=== PATIENT | female | born 1995 | race Caucasian/White ===

== ENCOUNTER → 2020-11-13 | Outpatient (REF) | payer BC | LOC: M SFHCWAGY 13:34 | PROVIDERS: ATTEND Nurse Practitioner Women's Health | DX: Z12.4 Encounter for screening for malignant neoplasm of cervix (principal); Z01.419 Encounter for gynecological examination (general) (routine) without abnormal findings ==

== ENCOUNTER → 2022-01-29 | Outpatient (CLI) | payer BC | LOC: M WHC 13:31 | PROVIDERS: ATTEND Obstetrics & Gynecology | DX: N63.20 Unspecified lump in the left breast, unspecified quadrant (principal) ==

== ENCOUNTER → 2022-06-04 | Outpatient (REF) | payer BC | LOC: M PLALAB 16:17 | PROVIDERS: ATTEND Nurse Practitioner Family | DX: Z12.4 Encounter for screening for malignant neoplasm of cervix (principal) ==

== ENCOUNTER → 2023-05-27 | Outpatient (CLI) | payer BC | LOC: M RAD 07:53 | PROVIDERS: ATTEND Nurse Practitioner Adult Health | DX: N97.9 Female infertility, unspecified (principal) ==

== ENCOUNTER → 2023-05-27 | Outpatient (CLI) | payer BC ==
[2023-05-27 10:04] LABS: FREE T4 1.05 NG/DL (0.89-1.76)
[2023-05-27 10:05] LABS: FOLLICLE STIMULATING HORMONE 6.9 mIU/ML; LUTEINIZING HORMONE 11.8 mIU/ML; THYROID STIMULATING HORMONE 2.05 uIU/ML (0.55-4.78)
== END ==
LOC: M LAB 09:01
PROVIDERS: ATTEND Nurse Practitioner Adult Health
DX: N97.9 Female infertility, unspecified (principal)

== ENCOUNTER → 2023-08-02 | Outpatient (CLI) | payer BC | LOC: M WHC 12:51 | PROVIDERS: ATTEND Nurse Practitioner Family | DX: N83.202 Unspecified ovarian cyst, left side (principal) ==

== ENCOUNTER 2024-05-08 05:30 | Emergency (ER) | payer BC, OTHER ==
[~2024-05-08] VITALS: Ht 160 cm; Wt 90.2 kg
[2024-05-08 08:15] LABS: BASO # 0.1 10^3/uL (0.0-0.2); BASO % 0.4 % (0.0-1.0); EOS % 0.1 % (0.0-3.0); HEMOGLOBIN 13.4 g/dl (12.0-15.5); LYMPH # 1.4 10^3/uL (1.5-5.0); MEAN CORPUSCULAR HEMOGLOBIN 31.2 pg (27.0-33.0); MEAN CORPUSCULAR HGB CONC 33.5 g/dl (32.0-36.5); MONO # 0.7 10^3/uL (0.0-0.8); MONO % 3.4 % (2.0-8.0); NEUTROPHILS # 17.1 10^3/uL (1.5-8.5); NEUTROPHILS % 88.7 % (36.0-66.0); PLATELET COUNT, AUTOMATED 410 10^3/uL (150-450); WHITE BLOOD COUNT 19.3 10^3/uL (4.0-10.0)
[2024-05-08 08:33] LABS: LIPASE 38 U/L (12-53)
[2024-05-08 08:36] LABS: ALBUMIN 3.8 G/DL (3.2-5.2); ALKALINE PHOSPHATASE 89 U/L (46-116); ALT/SGPT 32 U/L (7.0-40); AST/SGOT 12 U/L (<34); BILIRUBIN,DIRECT < 0.1 MG/DL (<0.4); BILIRUBIN,TOTAL 0.3 MG/DL (0.3-1.2); BLOOD UREA NITROGEN 11 MG/DL (9-23); CALCIUM LEVEL 9.4 MG/DL (8.5-10.1); CARBON DIOXIDE LEVEL 24 MMOL/L (20-31); CHLORIDE LEVEL 108 MMOL/L (98-107); CREATININE FOR GFR 0.54 MG/DL (0.55-1.30); GLOMERULAR FILTRATION RATE > 60.0 (>60); GLUCOSE, FASTING 96 MG/DL (60-100); POTASSIUM SERUM 4.2 MMOL/L (3.5-5.1); SODIUM LEVEL 141 MMOL/L (136-145); TOTAL PROTEIN 7.4 G/DL (5.7-8.2)
[2024-05-08 08:41] LABS: HCG, SERUM QUALITATIVE NEGATIVE (NEGATIVE)
[2024-05-08] MEDS ORDERED: ISOVUE-370 76% 100ML VIAL As Ordered ONE (08:53)
[2024-05-08 10:05] VITALS: BP 121/83; TEMP 98.1; O2SAT 99
[2024-05-08] MEDS ORDERED: HYDR-3713 PO (10:06)
== END 2024-05-08 10:56 | disposition home or self-care (01) ==
LOC: M ED 05:30
DX: N83.292 Other ovarian cyst, left side (principal); Z88.1 Allergy status to other antibiotic agents; Z79.1 Long term (current) use of non-steroidal anti-inflammatories (NSAID)
CPT/HCPCS: 36415; 74177; 76830; 76856; 80048; 80076; 81001; 83690; 84703; 85025; 93041; 93976; 99284; Q9967

== ENCOUNTER 2024-06-15 12:54 | Day surgery (SDC) | payer OTHER ==
[~2024-06-15] VITALS: Ht 160 cm; Wt 87.1 kg
[~2024-06-15 12:54] MED LIST: HYDR-3713 PO; MULTTAB20 PO
[2024-06-15 13:28] LABS: HEMATOCRIT 43.4 % (36.0-47.0); HEMOGLOBIN 14.3 g/dl (12.0-15.5); MEAN CORPUSCULAR HEMOGLOBIN 30.8 pg (27.0-33.0); MEAN CORPUSCULAR HGB CONC 32.9 g/dl (32.0-36.5); MEAN CORPUSCULAR VOLUME 93.5 fl (80.0-96.0); PLATELET COUNT, AUTOMATED 449 10^3/uL (150-450); RED BLOOD COUNT 4.64 10^6/uL (4.00-5.40); WHITE BLOOD COUNT 10.8 10^3/uL (4.0-10.0)
[2024-06-15] MEDS ORDERED: propofoL 200 MG/20 ML VIAL As Ordered ONE (15:42)
[2024-06-15] MEDS ORDERED: MIDAZOLAM INJ 2MG/2ML VIAL As Ordered ONE (15:42)
[2024-06-15] MEDS ORDERED: fentaNYL 250 MCG/5 ML INJECTION As Ordered ONE (15:42)
[2024-06-15] MEDS ORDERED: SUGAMMADEX SODIUM 500 MG/5 ML VIAL (BRIDION) As Ordered ONE (15:42)
[2024-06-15] MEDS ORDERED: METOCLOPRAMIDE INJ 10MG/2ML VIAL As Ordered ONE (15:42)
[2024-06-15] MEDS ORDERED: ROCURONIUM BROMIDE 50MG/5ML VIAL As Ordered ONE (15:42)
[2024-06-15] MEDS ORDERED: KETOROLAC 60MG 2ML VIAL As Ordered ONE (15:42)
[2024-06-15] MEDS ORDERED: LIDOCAINE 2% 100MG/5ML SDV (FOR ANES.) As Ordered ONE (15:42)
[2024-06-15] MEDS ORDERED: DESFLURANE 240 ML INHALANT As Ordered ONE (15:42)
[2024-06-15] MEDS ORDERED: HYDROmorphone HCL 2MG/ML 1ML VIAL As Ordered ONE (15:42)
[2024-06-15] MEDS ORDERED: ONDANSETRON 4MG 2ML VIAL As Ordered ONE (15:42)
[2024-06-15] MEDS ORDERED: dexmedeTOMIDine (4MCG/ML)200MCG/50ML BTL (PRECEDEX) As Ordered ONE (15:47)
[2024-06-15] MEDS: METHYLENE BLUE 0.5% (5MG/ML) 10 ML AMP (PROVAYBLUE) As Ordered ONE (17:15)
[2024-06-15] MEDS ORDERED: HYDROMORPHONE HCL 0.5 MG/ 0.5 ML SYRINGE IV PRN (17:35)
[2024-06-15] MEDS ORDERED: LR 1,000 ML IV SCH (17:35)
[2024-06-15] MEDS ORDERED: fentaNYL 100 MCG/2 ML INJECTION IV PRN (17:35)
[2024-06-15] MEDS ORDERED: PERC5TAB12 PO (18:00)
[2024-06-15] MEDS ORDERED: ONDA-282 PO (18:01)
[2024-06-15] MEDS ORDERED: COLA100C5 PO (18:02)
[2024-06-15] MEDS ORDERED: IBUP80TA PO (18:02)
[2024-06-15] MEDS: ONDANSETRON 4MG 2ML VIAL IV PRN (18:05)
[2024-06-15] MEDS: oxyCODONE 5MG TAB PO PRN (18:06)
[2024-06-15] MEDS: ceFAZolin SOD 2 GM in IV 1 EA IV ONE (19:00)
[2024-06-15 19:25] VITALS: BP 119/71; TEMP 97.6; O2SAT 96
== END 2024-06-15 19:34 | disposition home or self-care (01) ==
LOC: M SDC 12:54
PROVIDERS: ATTEND Obstetrics & Gynecology
DX: D27.1 Benign neoplasm of left ovary (principal); N80.102 Endometriosis of left ovary, unspecified depth; N80.329 Endometriosis of the posterior cul-de-sac, unspecified depth; N73.6 Female pelvic peritoneal adhesions (postinfective)
CPT/HCPCS: 36415; 58662; 81025; 85027; 86850; 86900; 86901; 88305; J0665; J0690; J1100; J1170; J1885; J2250; J2405; J2765; J3010; Q9968; S2900

== ENCOUNTER → 2025-09-04 | Outpatient (REF) | payer OTHER ==
[~2025-09-04] MED LIST changes: +COLA100C5 PO; +IBUP80TA PO; +ONDA-282 PO; +PERC5TAB12 PO
[2025-09-10 13:12] LABS: HPV APTIMA Not Detected (Not Detected)
== END ==
LOC: M WHC 17:02 → M SFHCWAGY 17:02
PROVIDERS: ATTEND Physician Assistant
DX: Z12.4 Encounter for screening for malignant neoplasm of cervix (principal)
CPT/HCPCS: 87624; G0123